=== PATIENT | male | born 1990 | race Caucasian/White ===

== ENCOUNTER 2022-02-17 18:43 | Emergency (ER) | payer MEDICAID ==
[~2022-02-17] VITALS: Ht 152.4 cm; Wt 68.3 kg
[2022-02-17 19:36] LABS: EOSINOPHILS % 1.4 % (0.0-5.0); HEMOGLOBIN. 16.7 g/dL (14.0-18.0); LYMPHOCYTES % 18.5 % (20.0-50.0); MEAN CORPUSCULAR HEMOGLOBIN 29.4 pg (28.0-32.0); MEAN CORPUSCULAR VOLUME 82.6 fL (80.0-94.0); MEAN PLATELET VOLUME 7.5 fl (7.4-10.4); MONOCYTES % 8.3 % (2.0-8.0); NEUTROPHILS % 70.8 % (40.0-76.0); PLATELET 230 x1000/uL (130-400); RED BLOOD CELL COUNT 5.69 mill/uL (4.7-6.1); RED CELL DISTRIBUTION WIDTH 12.4 % (11.6-14.6)
[2022-02-17 19:42] LABS: CHLORIDE 105 mEq/L (98-107)
[2022-02-17] MEDS: LORAZEPAM 1MG TABLET PO PRN (22:18)
[2022-02-17] MEDS ORDERED: TOPUD PO (22:21)
[2022-02-17 22:30] VITALS: BP 127/82
== END 2022-02-17 22:35 | disposition home or self-care (01) ==
LOC: ER 19:25
DX: R07.9 Chest pain, unspecified (principal); F41.0 Panic disorder [episodic paroxysmal anxiety]
CPT/HCPCS: 36415; 71045; 80053; 84484; 85025; 85379; 93005; 99285